=== PATIENT | male | born 1975 | race Caucasian/White ===

== ENCOUNTER 2020-08-08 19:15 | Inpatient (IN) | payer SELFPAY ==
[2020-08-08 19:52] VITALS: BMI 25.8
[2020-08-08 20:44] VITALS: BP 122/79; PULSE 93; RESP 20; TEMP 36.3; O2SAT 96
--- NOTE | 2020-08-08 21:18 | PC.NURSE ---
Skin assessment revealed no wounds or injuries.
[2020-08-09 06:00] VITALS: BP 106/70; PULSE 67; RESP 18; TEMP 36.6; O2SAT 95
[2020-08-09 13:39] VITALS: BP 107/69; PULSE 76; RESP 16; TEMP 36.8; O2SAT 99
[2020-08-09] MEDS: paliperidone ER 3 mg Tablet PO ×2 (13:46→17:05)
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
[2020-08-09 17:00] LABS: Basophils % 0.9 %; Eosinophils # 0.1 10^3/uL (0.0-0.8); Eosinophils % 2.1 %; Hemoglobin 15.2 g/dL (11.7-16.6); Lymphocytes # 1.8 10^3/uL (0.8-4.8); Lymphocytes % 37.6 %; Mean Corpuscular HGB Conc 34.5 g/dL (30.0-36.0); Mean Corpuscular Hemoglobin 31.2 pg (28.0-34.0); Mean Corpuscular Volume 90.3 fL (80-94); Mean Platelet Volume 9.9 fL (7.4-10.4); Monocytes # 0.5 10^3/uL (0.2-0.9); Monocytes % 11.3 %; Neutrophils # 2.25 10^3/uL (1.8-7.7); Neutrophils % 48.1 %; Nucleated Red Blood Cells % 0 %; Platelet Count 147 10^3/cmm (130-400); Red Blood Count 4.87 10^6/uL (4.1-5.3); Red Cell Distribution Width 12.8 % (12.1-15.1); White Blood Count 4.7 10^3/uL (4.0-10.0)
[2020-08-09] MEDS: hyDROXYzine 25 mg Capsule 50 MG PO (17:09)
[2020-08-09 18:39] LABS: Lithium 0.1 mmol/L (0.6-1.2); Valproic Acid Level 2.8 ug/mL (50-100)
[2020-08-09 18:45] LABS: Alanine Aminotransferase 20 U/L (0-41); Albumin Level 3.9 g/dL (3.5-5.2); Alkaline Phosphatase 62 IU/L (40-130); Anion Gap 11.9 (5-19); Aspartate Amino Transferase 18 U/L (0-40); Blood Urea Nitrogen 17 mg/dL (6-20); Calcium 9.1 mg/dL (8.5-10.5); Carbon Dioxide 29 mmol/L (22-29); Chloride 102 mmol/L (98-107); Creatinine Clr Calc Pharmacy 97.8653; Globulin 2.3 g/dL (1.3-4.6); Glomerular Filtration Rate 80.8 mL/min (90-130); Glucose 104 mg/dL (65-115); Osmolality Calculated 290 mOsm/kg (285-295); Potassium 3.9 mmol/L (3.5-5.1); Sodium 139 mmol/L (136-145); Total Bilirubin 0.4 mg/dL (0.15-1.2); Total Protein 6.2 g/dL (6.6-8.7)
[2020-08-09 18:48] LABS: Rapid Plasma Reagin Syphilis Nonreactive (Nonreactive)
[2020-08-09 18:49] LABS: HIV 1 & 2 Antibody Non-Reactive (Non-Reactiv); HIV 1 & 2 Antigen Non-Reactive (Non-Reactiv)
[2020-08-09 19:43] VITALS: BP 106/65; PULSE 74; RESP 17; TEMP 37; O2SAT 95
[2020-08-10 06:00] VITALS: BP 97/66; PULSE 73; RESP 16; TEMP 36.5; O2SAT 93
[2020-08-10] MEDS: paliperidone ER 3 mg Tablet PO ×2 (08:12→20:26)
--- NOTE | 2020-08-10 12:37 | PM.NPN ---
Subjective NPU Subjective: Interval history: Patient is much more interactive today, up and moving around on the unit, irritable, angry but cooperates with interview States that he is upset because he should not have to come into the hospital to get help. Patient reports being compliant with medication although appears to have refused a dose last evening. Denies any interval psychotic symptoms, states he has not heard any voices today, denies any visual hallucinations, continues to report that he can tell when a person is going to that he can see into the future Denies any interval depressive symptoms, denies any suicidal ideation Per nurse report, no interval behavioral disturbances Mental Status Exam MSE Comments: Unshaven, hair pulled up in ponytail, wearing hospital scrubs, pacing on the unit, irritable and angry appearing Psychomotor activity is somewhat increased, no agitation Speech is normal rate and volume, spontaneous, not pressured I am upset, congruent affect, not labile Alert and oriented to person, place, time, situation Memory and concentration appear to be fair to intact per interview Thought process, linear, no flight of ideas, no looseness of associations Thought content, some delusions, does not appear to be attending to any internal stimuli, no suicidal or homicidal ideation Insight and judgment appear to be fair Vitals/I&O/Wt Last Vital Signs Temp 97.7 F 08/10/20 06:00 Pulse 73 08/10/20 06:00 Resp 16 08/10/20 06:00 BP 97/66 08/10/20 06:00 Pulse Ox 93 08/10/20 06:00 Weight last 48 hrs Weight 79.379 kg Weight 79.379 kg Data NPU : 08/09/20 16:29 08/09/20 16:29 A&P Assessment and plan (1) Psychotic disorder: Status: Acute Additional A&P Information Continues report bizarre delusions but denies any interval mood symptoms although he is irritable and angry, denies any suicidal ideation, tolerating medication well, will likely get long-acting injection of Invega Sustenna tomorrow CONTINUE current medication, continue to monitor Encourage patient participate in unit activities to include group sessions and unit milieu Involuntary Hold Information 96 Hour Hold: 96 Hour Involuntary Admission: Yes 96 Hour Hold Start Date: 08/09/20 Attestations NPU Medical Necessity Statement*: Continues to require psychiatric hospitalization for observation for return of any worsening psychotic symptoms or suicidal ideation as well as need for medication stabilization and coordination for safe discharge Coding Level of Care Code Acute Concrete Products Dispatcher for Chris Poole Diagnoses Psychotic disorder F29
[2020-08-10 14:00] VITALS: BP 106/65; PULSE 86; RESP 18; TEMP 37.1; O2SAT 96
[2020-08-10] MEDS: trazodone 50 mg Tablet PO (20:25)
[2020-08-10] MEDS: hyDROXYzine 25 mg Capsule 50 MG PO (20:25)
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
[2020-08-10 22:00] VITALS: BP 101/58; PULSE 65; RESP 15; TEMP 37.3; O2SAT 93
--- NOTE | 2020-08-10 22:27 | PC.NURSE ---
Message to Nurse Pt has a hoop nose ring in his nose.
[2020-08-11 06:00] VITALS: BP 106/61; PULSE 74; RESP 15; TEMP 36.9; O2SAT 96
[2020-08-11] MEDS: paliperidone ER 3 mg Tablet PO (07:39)
[2020-08-11] MEDS: paliperidone palmitate 234 mg Syringe IM (11:12)
--- NOTE | 2020-08-11 11:13 | PC.NURSE ---
SHOBHA SUSTENNA 234 MG GIVEN IM ORDERED BY PHYSICIAN. INJECTION GIVEN IN RIGHT DELTOID. PT EDUCATED ON MED GIVEN & VERBALIZED UNDERSTANDING. WILL CONT TO MONITOR INJECTION SITE FOR ANY REDNESS, SWELLING, OR IRRITATION LOT [id number] EXP 10/2021
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
[2020-08-11 12:59] VITALS: BP 106/61; PULSE 74; RESP 15; TEMP 36.9; O2SAT 96
--- NOTE | 2020-08-11 13:14 | PC.NURSE ---
discharge medications Per Dr. Ragland, Nathan Sustenna 156mg IM called into [facility] in [facility]. .
[2020-08-16 13:29] LABS: Vit D 1,25 (Oh)2, Total 37 pg/mL (18-72); Vit D2 1,25 (Oh)2 <8 pg/mL; Vit D3 1,25 (Oh)2 37 pg/mL
== END 2020-08-11 14:11 | disposition home or self-care (01) | DRG 885 ==
PROVIDERS: Admitting Provider Psychiatry & Neurology Psychiatry; Visit Provider Psychiatry & Neurology Psychiatry
DX: F23 Brief psychotic disorder (principal); F31.9 Bipolar disorder, unspecified; Z91.128 Patient's intentional underdosing of medication regimen for other reason
CPT/HCPCS: 12345; 80053; 80164; 80178; 82652; 85025; 86592; 87806; 96372